=== PATIENT | male | born 1970 | race Caucasian/White ===

== ENCOUNTER 2024-02-26 20:32 | Inpatient (IN) | payer OTHER ==
[~2024-02-26] VITALS: Ht 175.3 cm; Wt 78.6 kg
[2024-02-26 20:40] VITALS: O2SAT 98
[2024-02-26] MEDS ORDERED: ACETAMINOPHEN 650MG/20.3ML UDC PO NR (20:45)
[2024-02-26] MEDS: FAMOTIDINE 20MG/2ML VIAL IV NR (21:02)
[2024-02-26 21:20] LABS: BASOPHILS % 0.6 % (0.0-2.0); EOSINOPHILS % 1.4 % (0.0-5.0); HEMATOCRIT. 51.2 % (42.0-52.0); HEMOGLOBIN. 16.8 g/dL (14.0-18.0); LYMPHOCYTES % 36.2 % (20.0-50.0); MEAN CORPUSCULAR HEMOGLOBIN 30.2 pg (28.0-32.0); MEAN CORPUSCULAR HGB CONC 32.9 g/dL (31.0-37.0); MEAN CORPUSCULAR VOLUME 91.7 fL (80.0-94.0); MEAN PLATELET VOLUME 9.3 fl (7.4-10.4); MONOCYTES % 6.7 % (2.0-8.0); NEUTROPHILS % 55.1 % (40.0-76.0); PLATELET 233 x1000/uL (130-400); RED BLOOD CELL COUNT 5.58 mill/uL (4.7-6.1); RED CELL DISTRIBUTION WIDTH 15.1 % (11.6-14.6); WHITE BLOOD COUNT 12.2 x1000/uL (4.5-11.0)
[2024-02-26 21:24] LABS: CARBON DIOXIDE 27 mEq/L (21-32); CHLORIDE 106 mEq/L (98-107); POTASSIUM 3.8 mEq/L (3.5-5.1); SODIUM 140 mEq/L (136-145)
[2024-02-26 21:25] LABS: CALCIUM 9.9 mg/dL (8.7-10.4)
[2024-02-26 21:26] LABS: DIFFERENTIAL COMMENT 1; INR 0.9; PROTHROMBIN TIME 10.5 sec (9.6-11.0)
[2024-02-26] MEDS: ACETAMINOPHEN 325MG TABLET PO NR (21:27)
[2024-02-26 21:29] LABS: CREATININE 1.2 mg/dL (0.6-1.3)
[2024-02-26 21:30] LABS: GLUCOSE 122 mg/dL (70-105); UREA NITROGEN BLOOD 15 mg/dL (9-23)
[2024-02-26 21:31] LABS: ALANINE AMINOTRANSFERASE 21 IU/L (10-49); ALBUMIN 4.3 g/dL (3.2-4.8); ASPARTATE AMINOTRANSFERASE 16 IU/L (<34)
[2024-02-26 21:32] LABS: BILIRUBIN DIRECT 0.2 mg/dL (<=3.0); BILIRUBIN TOTAL 0.7 mg/dL (0.1-1.0); PROTEIN TOTAL 7.3 g/dL (6.0-8.3)
[2024-02-26 21:33] LABS: TROPONIN I HIGH SENSITIVITY < 4 ng/L (3.0-53)
[2024-02-26] MEDS: MORPHINE SULFATE 4 MG/ML INJ (FOR IV/IM USE) IV NR (22:33)
[2024-02-26] MEDS: ONDANSETRON HCL 4MG/2ML INJ IV NR (22:33)
[2024-02-26] MEDS: HALOPERIDOL LACTATE 5MG/ML VIAL IM ONE (23:34)
[2024-02-27] MEDS ORDERED: ACETAMINOPHEN 325MG TABLET PO PRN (00:15)
[2024-02-27] MEDS ORDERED: NALOXONE HCL 0.4MG/ML VIAL IV PRN (00:15)
[2024-02-27] MEDS ORDERED: CLONIDINE 0.1MG TABLET PO PRN (00:15)
[2024-02-27] MEDS ORDERED: ONDANSETRON HCL 4MG/2ML INJ IV PRN (00:15)
[2024-02-27] MEDS ORDERED: MAGNESIUM/ALUMINUM HYDROXIDE/SIMETHICONE 30ML UDC PO PRN (00:15)
[2024-02-27] MEDS ORDERED: ZOLPIDEM TARTRATE 5MG TABLET PO PRN (00:15)
[2024-02-27] MEDS: SODIUM CHLORIDE 0.9% 1,000 ML IV SCH (00:28)
[2024-02-27] MEDS: MORPHINE SULFATE 2 MG/ML INJ (NOT FOR IM USE) IV PRN (02:55)
[2024-02-27 03:26] VITALS: BP 119/80; PULSE 85; RESP 19; TEMP 36.8072
[2024-02-27 04:00] VITALS: BP 119/80; PULSE 85; RESP 19; TEMP 36.78072; O2SAT 98
[2024-02-27] MEDS ORDERED: MULT-1116 PO (04:10)
[2024-02-27] MEDS ORDERED: SEMA0.258 (04:10)
[2024-02-27 08:00] VITALS: BP 118/73; PULSE 93; RESP 18; TEMP 36.83628; O2SAT 96
[2024-02-27] MEDS: ENOXAPARIN 40MG/0.4ML SYR SUBCUT SCH (09:52)
[2024-02-27] MEDS: PANTOPRAZOLE SODIUM 40 MG/VIAL IV SCH (09:52)
[2024-02-27 12:16] VITALS: BP 118/74; PULSE 92; RESP 20; TEMP 36.50292; O2SAT 95
== END 2024-02-27 16:30 | disposition home or self-care (01) | DRG 392 ==
LOC: ER 20:32 → 6EST 23:46
PROVIDERS: ADMIT Internal Medicine; ATTEND Internal Medicine
DX: R10.84 Generalized abdominal pain (principal); R11.2 Nausea with vomiting, unspecified; Z79.899 Other long term (current) drug therapy
CPT/HCPCS: 36415; 71045; 74176; 80048; 80076; 84484; 85025; 93005; 99285; J1630; J1650; J2270; J2405; J2470; J3490